=== PATIENT | female | born 1990 | race Caucasian/White ===

== ENCOUNTER 2024-07-21 06:24 | Day surgery (SDC) | payer OTHER, SELFPAY | END 2024-07-21 09:29 | disposition home or self-care (01) | LOC: GI 06:24 | PROVIDERS: ATTENDING PHYSICIAN Internal Medicine | DX: K51.00 Ulcerative (chronic) pancolitis without complications (principal); K64.9 Unspecified hemorrhoids | CPT/HCPCS: 45380; 88305 ==